=== PATIENT | male | born 1950 | race Two or more races ===

== ENCOUNTER 2019-05-13 13:22 | Emergency (ER) | payer OTHER ==
[~2019-05-13] VITALS: Ht 165.1 cm; Wt 95.3 kg
[2019-05-13] MEDS ORDERED: SODIUM CHLORIDE 0.9% 1,000 ML IV ONE (14:15)
[2019-05-13] MEDS ORDERED: LORazepam 2MG/ML-1ML VIAL IV ONE (14:15)
[2019-05-13 14:51] LABS: Hematocrit 46.7 % (41.0-53.0); Hemoglobin 16.3 g/dL (13.5-17.5); Mean Corpuscular Hemoglobin 33.8 pg (28.0-32.0); Mean Corpuscular Volume 96.6 fL (80.0-100.0); Platelet Count (auto) 210 10^3/uL (140-450); Red Blood Cells 4.83 10^6/uL (4.5-5.90); Red Cell Distribution Width 13.6 % (11.8-14.3); White Blood Cell 8.4 10^3/uL (4.4-10.8)
[2019-05-13 14:57] LABS: Band Neutrophils % (manual) 0; Basophils % (manual) 0 (0.0-2.0); Blast Cells 0; Eosinophils % (manual) 0 (0-7); Metamyelocytes % 0; Myelocytes % 0; Promyelocytes % 0; Reactive Lymphocytes 0
[2019-05-13 15:04] LABS: Albumin 3.8 g/dL (3.4-5.0); Anion Gap 9 (5-15); Blood Alcohol < 3.0 mg/dL (0-5); Calcium 8.9 mg/dL (8.5-10.1); Carbon Dioxide 24 mmol/L (21-32); Chloride 105 mmol/L (98-107); Glucose 134 mg/dL (74-106); Potassium 3.4 mmol/L (3.5-5.1); Sodium 138 mmol/L (136-145)
[2019-05-13 15:08] LABS: Alanine Aminotransferase 61 U/L (16-61); Alkaline Phosphatase 98 U/L (45-117); Aspartate Aminotransferase 68 U/L (15-37); Bilirubin, Total 0.6 mg/dL (0.2-1.0); GFR African American 138 mL/min; GFR Non-African American 114 mL/min; Total Protein 7.9 g/dL (6.4-8.2)
[2019-05-13 15:12] LABS: BUN/Creatinine Ratio 6.9; Blood Urea Nitrogen 5 mg/dL (7-18)
[2019-05-13 16:03] LABS: Lymphocytes % (manual) 3 (10.0-50.0); Monocytes % (manual) 3 (0-12)
[2019-05-13 16:59] VITALS: BP 173/86
== END 2019-05-13 18:51 | disposition home or self-care (01) ==
LOC: EDBD 13:22 → ER 13:27
DX: F10.239 Alcohol dependence with withdrawal, unspecified (principal); M54.9 Dorsalgia, unspecified; I10 Essential (primary) hypertension; Z91.81 History of falling
CPT/HCPCS: 36415; 72131; 80053; 80320; 85007; 85027; 93005; 94761; 96374; 99284; J2060; J7030